=== PATIENT | female | born 1955 | race Caucasian/White ===

== ENCOUNTER → 2019-09-25 | Outpatient (CLI) | payer BC ==
[2019-09-25 15:17] LABS: BLOOD UREA NITROGEN 16 mg/dL (7-20)
== END ==
LOC: OD 14:05
PROVIDERS: ATTEND Orthopaedic Surgery
DX: R89.9 Unspecified abnormal finding in specimens from other organs, systems and tissues (principal)
CPT/HCPCS: 36415; 82565; 84520